=== PATIENT | male | born 1985 | race Caucasian/White ===

== ENCOUNTER → 2016-11-14 | Day surgery (SDC) | payer OTHER ==
[~2016-11-14] MED LIST: BUPIVACAINE HCL PF 0.25% 30 ML VIAL ONE; LACTATED RINGER'S 1000 ML INJ 1,000 ML ONE; LIDOCAINE HCL 1% 50 ML VIAL ONE; MIDAZOLAM HCL 2 MG/2 ML VIAL ONE; NEOMYCIN/POLYMYXIN/BACITRACIN OINT 15 GM TUBE ONE; ONDANSETRON HCL 4 MG/2 ML VIAL IV PUSH ONE; PROPOFOL 200 MG/20 ML AMP IV ONE
--- NOTE | 2016-11-14 09:57 | TN ---
cc: KELLY SANTANA M.D. DATE OF SURGERY: 11/14/2016 PREOPERATIVE DIAGNOSIS Desired contraception (ICD-10 code Z30.09). POSTOPERATIVE DIAGNOSIS Desired contraception (ICD-10 code Z30.09). PROCEDURE Bilateral partial vasectomy (CPT code 65011). INDICATIONS Mr. Ch is a 31-year-old gentleman. He has no children and does not desire children. He is requesting surgical sterilization via bilateral vasectomy. He had some challenging anatomy and decision was made to perform this under total intravenous anesthesia. FINDINGS The findings are testicles descended bilaterally without mass or tenderness. The vas are palpable bilaterally. DETAILS OF PROCEDURE The procedure as well as risks and benefits were explained to the patient. Informed consent was obtained. The patient was taken to the major operative theatre where he was placed in the supine position. The patient was identified as well as the operative site. A universal timeout was performed in the standard fashion. At this time total intravenous anesthesia was administered. After adequate anesthetic he was placed in the low dorsal lithotomy position, prepped and draped in the usual sterile fashion. At this time a standard vasectomy was performed. Using an 11 blade scalpel a 1 cm incision was made in the median raphe and both vas were then individually brought through the opening. A combination of 1% lidocaine and 0.25% Marcaine plain was administered. The vas was then dissected free from the sheath. A portion of it was transected and removed and the ends were then cauterized and medium titanium clips were applied. This was done on the contralateral side in the exact same manner. Care was taken to achieve meticulous hemostasis throughout the case using pinpoint electrocautery. At this time each vas were individually dropped back into the scrotum. The skin edges were then clamped with an Allis clamp for hemostasis and Polysporin ointment applied after removal of the clamp and an athletic supporter was administered. The patient tolerated the procedure well, emerged from anesthetic without difficulty and transferred to Recovery in stable condition to be discharged home when criteria is met. There were no obvious complications. MD DANIEL Simpson/ZION /9:44 AM /9:50 AM
== END | disposition home or self-care (01) ==
LOC: ESDC 07:15
PROVIDERS: ATTEND Urology
DX: Z30.2 Encounter for sterilization (principal)
CPT/HCPCS: 00921; 55250; J2250; J2405; J3010; J7120

== ENCOUNTER 2017-11-27 01:45 | Emergency (ER) | payer OTHER ==
[~2017-11-27] VITALS: Ht 175.3 cm; Wt 122.0 kg
[2017-11-27 01:52] VITALS: BP 152/95; PULSE 94; RESP 18; TEMP 97.8; O2SAT 95
--- NOTE | 2017-11-27 02:13 | PD ---
HPI Chief Complaint: Abdominal Pain Time Seen by Provider: 02:07 Travel History International Travel<30 days: No Contact w/Intl Traveler<30days: No Traveled to known affect area: No History of Present Illness HPI 32-year-old male presents to the emergency department by [place] transportation for evaluation of nausea left upper quadrant abdominal pain and sweating since approximately 8 PM. Patient has had subjective fever and chills. Patient has had recent upper respiratory infection but denies any recent sinus pressure drainage sore throat earache chest pain or shortness of breath. Patient had nausea without hematemesis coffee-ground emesis melena or hematochezia. No report of dysuria frequency urgency or flank pain. No prior history of inflammatory bowel disease colitis or ulcerative colitis. Also no history of Crohn's. No report of any injury. Patient denies any dietary indiscretion well water ingestion or foreign travel. PFSH Past Medical History Narrative Medical Negative past medical history vasectomy no tobacco use nursing notes reviewed Diminished Hearing: No Tetanus Vaccination: Unknown Influenza Vaccination: Yes Past Surgical History Genitourinary Surgery: Yes (Vasectomy) Social History Alcohol Use: No (rarely) Tobacco Use: No Substance Use: No Allergies-Medications (Allergen,Severity, Reaction): Coded Allergies: No Known Allergies (Unverified , 11/27/17) Reported Meds & Prescriptions Reported Meds & Active Scripts Active No Active Prescriptions or Reported Medications Review of Systems Except as stated in HPI: all other systems reviewed are Neg General / Constitutional: No: Fever, Chills HENT: No: Congestion Cardiovascular: No: Chest Pain or Discomfort Respiratory: No: Cough, Shortness of Breath Gastrointestinal: Positive: Nausea, Abdominal Pain, No: Vomiting, Diarrhea Genitourinary: No: Dysuria, Flank Pain Musculoskeletal: No: Myalgias, Arthralgias Skin: No Rash Neurologic: No: Weakness Psychiatric: No: Anxiety Hematologic/Lymphatic: No: Lymph Node Enlargement Physical Exam Narrative GENERAL: Well-developed well-nourished male no acute distress or respiratory distress SKIN: Warm and dry. HEAD: Normocephalic. EYES: No scleral icterus. No injection or drainage. NECK: Supple, trachea midline. No JVD or lymphadenopathy. CARDIOVASCULAR: Regular rate and rhythm without murmurs, gallops, or rubs. RESPIRATORY: Breath sounds equal bilaterally. No accessory muscle use. GASTROINTESTINAL: Abdomen soft, left upper quadrant tenderness to direct palpation without guarding or rebound, nondistended. MUSCULOSKELETAL: No cyanosis, or edema. BACK: Nontender without obvious deformity. No CVA tenderness. Data Data Last Documented VS Vital Signs Date Time Temp Pulse Resp B/P (MAP) Pulse Ox O2 Delivery O2 Flow Rate FiO2 11/27/17 01:52 97.8 94 18 152/95 (114) 95 Room Air Orders Orders Complete Blood Count With Diff (11/27/17 02:08) Comprehensive Metabolic Panel (11/27/17 02:08) Lipase (11/27/17 02:08) Urinalysis - C+S If Indicated (11/27/17 02:08) Iv Access Insert/Monitor (11/27/17 02:08) Ecg Monitoring (11/27/17 02:08) Oximetry (11/27/17 02:08) Ondansetron Inj (Zofran Inj) (11/27/17 02:15) Sodium Chlor 0.9% 1000 Ml Inj (Ns 1000 M (11/27/17 02:15) Ketorolac Inj (Toradol Inj) (11/27/17 03:15) Ondansetron Inj (Zofran Inj) (11/27/17 03:45) Sodium Chlor 0.9% 1000 Ml Inj (Ns 1000 M (11/27/17 03:45) Ed Discharge Order (11/27/17 04:28) Labs Laboratory Tests Test 11/27/17 02:30 White Blood Count 10.4 TH/MM3 Red Blood Count 5.81 MIL/MM3 Hemoglobin 16.5 GM/DL Hematocrit 48.6 % Mean Corpuscular Volume 83.7 FL Mean Corpuscular Hemoglobin 28.3 PG Mean Corpuscular Hemoglobin Concent 33.8 % Red Cell Distribution Width 13.6 % Platelet Count 292 TH/MM3 Mean Platelet Volume 7.5 FL Neutrophils (%) (Auto) 79.6 % Lymphocytes (%) (Auto) 14.6 % Monocytes (%) (Auto) 4.9 % Eosinophils (%) (Auto) 0.6 % Basophils (%) (Auto) 0.3 % Neutrophils # (Auto) 8.3 TH/MM3 Lymphocytes # (Auto) 1.5 TH/MM3 Monocytes # (Auto) 0.5 TH/MM3 Eosinophils # (Auto) 0.1 TH/MM3 Basophils # (Auto) 0.0 TH/MM3 CBC Comment DIFF FINAL Differential Comment Urine Color YELLOW Urine Turbidity CLEAR Urine pH 5.5 Urine Specific [place] 1.024 Urine Protein TRACE mg/dL Urine Glucose (UA) NEG mg/dL Urine Ketones NEG mg/dL Urine Occult Blood NEG Urine Nitrite NEG Urine Bilirubin NEG Urine Urobilinogen LESS THAN 2.0 MG/DL Urine Leukocyte Esterase NEG Urine RBC 1 /hpf Urine WBC LESS THAN 1 /hpf Urine Squamous Epithelial Cells 1 /hpf Urine Mucus FEW /lpf Microscopic Urinalysis Comment CULT NOT INDICATED Blood Urea Nitrogen 16 MG/DL Creatinine 1.10 MG/DL Random Glucose 128 MG/DL Total Protein 7.9 GM/DL Albumin 4.3 GM/DL Calcium Level 9.3 MG/DL Alkaline Phosphatase 79 U/L Aspartate Amino Transf (AST/SGOT) 29 U/L Alanine Aminotransferase (ALT/SGPT) 69 U/L Total Bilirubin 0.4 MG/DL Sodium Level 140 MEQ/L Potassium Level 4.2 MEQ/L Chloride Level 107 MEQ/L Carbon Dioxide Level 25.9 MEQ/L Anion Gap 7 MEQ/L Estimat Glomerular Filtration Rate 79 ML/MIN Lipase 188 U/L [facility] Medical Decision Making Medical Screen Exam Complete: Yes Emergency Medical Condition: Yes Medical Record Reviewed: Yes Interpretation(s) CBC & BMP Diagram 11/27/17 02:30 Total Protein 7.9, Albumin 4.3, Calcium Level 9.3, Alkaline Phosphatase 79, Aspartate Amino Transf (AST/SGOT) 29, Alanine Aminotransferase (ALT/SGPT) 69, Total Bilirubin 0.4 Vital Signs Date Time Temp Pulse Resp B/P (MAP) Pulse Ox O2 Delivery O2 Flow Rate FiO2 11/27/17 01:52 97.8 94 18 152/95 (114) 95 Room Air Differential Diagnosis Abdominal pain, biliary colic, acute pancreatitis, colitis, diverticulitis, gastroenteritis, viral syndrome, UTI, obstructive uropathy Narrative Course IV access obtained specimens collected and sent for resulting patient administered 1 L normal saline and Zofran 4 mg IV Patient requesting pain medicine Toradol 30 mg IV administered Patient reports feeling improved but still some persistent nausea additional dose of Zofran 4 mg administered along with 1 L of normal saline Patient's abdomen is soft nontender no guarding no rebound suspect patient has viral syndrome versus foodborne illness will reassess patient's tolerance to oral hydration and disposition At 4:30 AM patient tolerating oral hydration well resting comfortably desirous of trial at home on IV fluids has some mild discomfort that he reports is residual grumbling in his abdomen no localizing point tenderness and no peritoneal irritation with provocative testing. Patient this point appears stable for outpatient management is encouraged to recheck in the emergency department for any concerns such as increasing pain fever vomiting or change in condition. Patient is aware he will be off 1 day and should follow clear liquid diet advancing as tolerated and avoiding fried and fatty foods. Patient is to monitor temperature with the monitor every 4 hours to see if he is developing fever and take antipyretic as appropriate Patient acknowledges discharge plan and is stable for follow-up with primary care provider/outpatient management Diagnosis Primary Impression: Gastroenteritis Referrals: Primary Care Physician 2 days Patient Instructions: General Instructions Departure Forms: Tests/Procedures, Work Release Special Instructions: no work x 1 day Additional Instructions: Follow clear liquid diet 24 hours advance as tolerated to bland/brat diet and regular diet Avoid fried and fatty foods Monitor temperature for fever take acetaminophen/Tylenol as often as every 4 hours as needed for fever 100.4F or greater May use as tolerated ibuprofen/Advil/Motrin 800 mg as often as every 8 hours Take Zofran as prescribed as needed for nausea and/or vomiting Tramadol/Ultram may be taken as often as every 6 hours as needed for pain greater than 5/10 intensity; be aware that this medication may impair judgment, delay reaction time, increased risk for fall Return to the emergency department for any concerns such as pain fever vomiting or change in condition Follow-up with your primary care provider No work 1 day Med/Other Pt SpecificInfo: Prescription(s) given Scripts Tramadol (Tramadol) 50 Mg Tab 50 MG PO Q6H Y for PAIN, #5 TAB 0 Refills Prov: Reyna Weller MD 11/27/17 Ondansetron Odt (Zofran Odt) 4 Mg Tab 4 MG SL Q6HR Y for Nausea/Vomiting, #10 TAB 0 Refills Prov: Reyna Weller MD 11/27/17 Disposition: 01 DISCHARGE HOME Condition: Stable Reyna Weller MD Nov 27, 2017 02:13
[2017-11-27] MEDS ORDERED: SODIUM CHLOR 0.9% 1000 ML INJ 1,000 ML IV ONE ×2 (02:15→03:45)
[2017-11-27] MEDS ORDERED: ONDANSETRON HCL 4 MG/2 ML VIAL IV PUSH ONE ×2 (02:15→03:45)
[2017-11-27 02:47] LABS: AUTOMATED NEUTROPHIL # 8.3 TH/MM3 (1.8-7.7); BASOPHIL % 0.3 % (0.0-2.0); EOSINOPHIL # 0.1 TH/MM3 (0-0.4); EOSINOPHIL % 0.6 % (0.0-4.0); HEMATOCRIT 48.6 % (39.0-51.0); HEMOGLOBIN 16.5 GM/DL (13.0-17.0); LYMPH % 14.6 % (9.0-44.0); LYMPHOCYTE # 1.5 TH/MM3 (1.0-4.8); MEAN CELL VOLUME 83.7 FL (80.0-100.0); MEAN CORPUSCULAR HEMOGLOBIN 28.3 PG (27.0-34.0); MEAN CORPUSCULAR HGB CONC 33.8 % (32.0-36.0); MEAN PLATELET VOLUME 7.5 FL (7.0-11.0); MONO % 4.9 % (0.0-8.0); MONOCYTE # 0.5 TH/MM3 (0-0.9); NEUT % 79.6 % (16.0-70.0); PLATELET COUNT 292 TH/MM3 (150-450); RED BLOOD COUNT 5.81 MIL/MM3 (4.50-5.90); RED CELL DISTRIBUTION WIDTH 13.6 % (11.6-17.2); WHITE BLOOD COUNT 10.4 TH/MM3 (4.0-11.0)
[2017-11-27 02:54] LABS: BILIRUBIN, URINE NEG (NEG); BLOOD, URINE NEG (NEG); GLUCOSE,URINE NEG (NEG); KETONE, URINE NEG (NEG); MUCUS URINE FEW /lpf (OCC); NITRITE,URINE NEG (NEG); PH, URINE 5.5 (5.0-8.5); SQUAMOUS EPITHELIAL CELL URINE 1 /hpf (0-5); URINE COLOR YELLOW (YELLW/STRAW); URINE LEUKOCYTE ESTERASE NEG (NEG)
[2017-11-27 03:04] LABS: ALBUMIN 4.3 GM/DL (3.4-5.0); ALT (GPT) 69 U/L (12-78); AST (GOT) 29 U/L (15-37); BICARBONATE 25.9 MEQ/L (21.0-32.0); BLOOD UREA NITROGEN 16 MG/DL (7-18); CALCIUM 9.3 MG/DL (8.5-10.1); CHLORIDE 107 MEQ/L (98-107); GLOMERULAR FILTRATION RATE 79 ML/MIN (>89); GLUCOSE,RANDOM 128 MG/DL (74-106); SODIUM (NA) 140 MEQ/L (136-145)
[2017-11-27 03:07] LABS: ALKALINE PHOSPHATASE 79 U/L (45-117); TOTAL BILIRUBIN ADULT 0.4 MG/DL (0.2-1.0); TOTAL PROTEIN 7.9 GM/DL (6.4-8.2)
[2017-11-27] MEDS ORDERED: KETOROLAC TROMETHAMINE 30 MG/ML (IVP) VIAL IV PUSH ONE (03:15)
[2017-11-27] MEDS ORDERED: ZOFR4TAB3 SL (04:30)
[2017-11-27] MEDS ORDERED: TRAM50TA PO (04:30)
== END 2017-11-27 06:43 | disposition home or self-care (01) ==
LOC: NEPC 01:45
DX: K52.9 Noninfective gastroenteritis and colitis, unspecified (principal)
CPT/HCPCS: 80053; 81001; 83690; 85025; 96374; 96375; 96376; 99284; J1885; J2405; J7030